=== PATIENT | male | born 1970 | race Two or more races ===

== ENCOUNTER 2025-03-29 07:41 | Outpatient (RCR) | payer MEDICARE, SELFPAY | END 2025-04-23 23:59 | disposition home or self-care (01) | LOC: SCTC 07:41 | PROVIDERS: PCP Family Medicine; Referring Provider Physician Assistant; Visit Provider Nurse Practitioner Family | DX: D50.9 Iron deficiency anemia, unspecified (principal); F20.9 Schizophrenia, unspecified; F31.9 Bipolar disorder, unspecified; G89.29 Other chronic pain; R10.9 Unspecified abdominal pain; F17.210 Nicotine dependence, cigarettes, uncomplicated | CPT/HCPCS: 99202; G0463 ==

== ENCOUNTER 2025-04-26 10:02 | Outpatient (RCR) | payer MEDICARE, SELFPAY | END 2025-05-23 23:59 | disposition home or self-care (01) | LOC: SCTC 10:02 | PROVIDERS: PCP Family Medicine; Referring Provider Family Medicine; Visit Provider Nurse Practitioner Family | DX: D50.9 Iron deficiency anemia, unspecified (principal); F20.9 Schizophrenia, unspecified; F31.9 Bipolar disorder, unspecified; R10.9 Unspecified abdominal pain; F17.210 Nicotine dependence, cigarettes, uncomplicated; Z71.6 Tobacco abuse counseling; F10.10 Alcohol abuse, uncomplicated; Z71.41 Alcohol abuse counseling and surveillance of alcoholic | CPT/HCPCS: 99212; G0463 ==

== ENCOUNTER → 2025-06-10 | Outpatient (CLI) | payer MEDICARE, SELFPAY ==
--- NOTE | 2025-06-10 | XR_ITS ---
Examination: CT abdomen, without intravenous contrast. CT abdomen, with intravenous contrast. Sagittal and coronal 2-D reconstructions. Time of exam: June 10, 2025, 1723 hours INDICATIONS: Abdominal pain and black stools this week, iron deficiency anemia CTDI: vol (mGy) 20.2 DLP: (mGycm) 801 Technique: Multiple 3.0 mm axial noncontrast images of the abdomen have been obtained. Multiple 3.0 mm axial images post administration 60 cc Isovue-370 intravenous contrast have been obtained. Sagittal and coronal 3-D reconstructions have been obtained. Low dose protocols were performed. One or more of the following dose reduction techniques were used; automated exposure control, adjustment of the mA and/or KV according to patient size, use of iterative reconstruction technique. 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
--- NOTE | 2025-06-10 16:00 | XR_ITS ---
Examination: CT chest with intravenous contrast CT chest without intravenous contrast 2-D reconstructions Date and time of exam: June 10, 2025, 1733 hours INDICATIONS: Diagnosis hiatal hernia, epigastric pain 1 month, diagnosis iron deficiency anemia unspecified CTDI:vol (mGy) 28.1 DLP: (mGycm) 1064 Technique: Multiple axial sections of the thorax have been obtained. 3 mm slice thickness, from the hemidiaphragms to above the apices of the lungs. Mediastinal and lung density settings have been obtained. Intravenous contrast administered 60 cc Isovue-370. Noncontrast images have also been obtained. 2-D sagittal coronal images obtained. Low dose protocols were performed. One or more of the following dose reduction techniques were used; automated exposure control, adjustment of the mA and/or KV according to patient size, use of iterative reconstruction technique. Findings: 6 mm right 4 mm left thyroid nodules No thoracic aortic aneurysm dilatation or dissection Pulmonary artery segments do not show definite filling defects No paratracheal tracheobronchial or bronchopulmonary adenopathy All of the stomach has herniated through the left hemidiaphragm into the left hemithorax No pneumonia, pulmonary edema or pleural disease Minor atelectasis left base No visualized liver or splenic lesions No gallstones No pancreatic mass 27 mm indeterminate left adrenal nodule IMPRESSION: Bilateral thyroid nodules, consider dedicated thyroid sonography follow-up All of the stomach is herniated through the left hemidiaphragm into the left hemithorax 27 mm indeterminate left adrenal nodule
== END | disposition home or self-care (01) ==
LOC: SCAT 16:08
PROVIDERS: PCP Nurse Practitioner Family; Referring Provider Nurse Practitioner Family; Visit Provider Nurse Practitioner Family
DX: E04.2 Nontoxic multinodular goiter (principal); K46.9 Unspecified abdominal hernia without obstruction or gangrene; D50.9 Iron deficiency anemia, unspecified; Z87.891 Personal history of nicotine dependence
CPT/HCPCS: 71270; 74170; A4649; Q9967